=== PATIENT | male | born 1995 | race African-American/Black ===

== ENCOUNTER 2016-07-05 18:15 | Inpatient (IN) | payer OTHER ==
[~2016-07-05] VITALS: Ht 177.8 cm; Wt 75.8 kg
[~2016-07-05 18:15] MED LIST: DEPA500T3 PO; FLUP1INJ IM; FLUP5TAB PO
[2016-07-05 18:16] VITALS: BP 124/79; PULSE 100; RESP 10; RESP 20; TEMP 97.3; O2SAT 98
--- NOTE | 2016-07-05 20:08 | PD ---
Physical Exam Date Seen by Provider: Jul 05, 2016 Time Seen by Provider: 20:07 Narrative 21 YOBM C/O STIFFNESS IN HIS BACK. ALSO WANTS PSYCH EVAL. POS VOICES. NO SI OR HI VSS. AWAITING BED PLACEMENT Data Data Last Documented VS Vital Signs Date Time Temp Pulse Resp B/P Pulse Ox O2 Delivery O2 Flow Rate FiO2 07/05/16 18:16 97.3 100 20 124/79 98 Room Air [facility] Medical Record Reviewed: Yes Supervised Visit with ANNIE: Yes Paul De Jul 05, 2016 20:08
--- NOTE | 2016-07-05 23:38 | PD ---
HPI Chief Complaint: Psychiatric Symptoms Time Seen by Provider: 23:30 Travel History International Travel<30 days: No Contact w/Intl Traveler<30days: No Traveled to known affect area: No History of Present Illness HPI 21-year-old male with history of schizoaffective disorder, bipolar disorder, recent admission to psychiatry with discharge 4 days ago, here for evaluation of lower back stiffness and hearing voices. Patient reports feeling stiff for the last 4 days. He denies pain. No trauma. He tells me he is hearing voices. He denies suicidal or homicidal ideation. He reports compliance with his fluphenazine and Depakote. He denies alcohol or illicit drug use. PFSH Past Medical History Anxiety: No Depression: No Cancer: No Cardiovascular Problems: No Endocrine: No Genitourinary: No Immune Disorder: No Musculoskeletal: No Neurologic: No Psychiatric: Yes (Schizophrenia) Respiratory: No Past Surgical History AICD: No Arteriovenous Shunt: No Insulin Pump: No Joint Replacement: No Pacemaker: No Social History Alcohol Use: No Tobacco Use: No Substance Use: No (DENIES) Allergies-Medications (Allergen,Severity, Reaction): Coded Allergies: Cogentin (Verified Allergy, Severe, 07/05/16) Haldol (Verified Allergy, Severe, 07/05/16) Reported Meds & Prescriptions Reported Meds & Active Scripts Active Fluphenazine Decanoate Inj (Fluphenazine Decanoate) 125 Mg/5 Ml Inj 25 Mg IM Q21D This dose of fluphenazine decanoate is due on 07/22/2016. Depakote ER (Divalproex Sodium) 500 Mg Dexter 1,500 Mg PO HS 15 Days Fluphenazine (Fluphenazine HCl) 5 Mg Tab 5 Mg PO BID 15 Days Continue oral fluphenazine at least until your next fluphenazine decanoate injection or as directed by your outpatient provider. Review of Systems Except as stated in HPI: all other systems reviewed are Neg Physical Exam Narrative GENERAL: Well-developed, well-nourished, awake, alert, no acute distress. SKIN: Focused skin assessment warm/dry. No rash. HEAD: Atraumatic. Normocephalic. EYES: Pupils equal and round. No scleral icterus. No injection or drainage. ENT: Mucous membranes pink and moist. NECK: Trachea midline. No JVD. No nuchal rigidity. CARDIOVASCULAR: Regular rate and rhythm. RESPIRATORY: No accessory muscle use. Clear to auscultation. Breath sounds equal bilaterally. GASTROINTESTINAL: Abdomen soft, non-tender, nondistended. MUSCULOSKELETAL: No obvious deformities. No clubbing. No cyanosis. No edema. No midline vertebral step-off or tenderness. NEUROLOGICAL: Awake and alert. No obvious cranial nerve deficits. Motor grossly within normal limits. Normal speech. PSYCHIATRIC: Flat affect. Poor eye contact. Data Data Last Documented VS Vital Signs Date Time Temp Pulse Resp B/P Pulse Ox O2 Delivery O2 Flow Rate FiO2 07/05/16 18:16 97.3 100 20 124/79 98 Room Air Orders Complete Blood Count With Diff (07/05/16 23:34) Comprehensive Metabolic Panel (07/05/16 23:34) Valproic Acid (Depakene) (07/05/16 23:34) Psych Screen (07/05/16 23:34) Drug Screen, Random Urine (07/05/16 23:34) Diphenhydramine Inj (Benadryl Inj) (07/05/16 23:45) Labs Laboratory Tests Test 07/06/16 00:15 White Blood Count 9.7 TH/MM3 Red Blood Count 4.83 MIL/MM3 Hemoglobin 14.9 GM/DL Hematocrit 44.1 % Mean Corpuscular Volume 91.2 FL Mean Corpuscular Hemoglobin 30.9 PG Mean Corpuscular Hemoglobin 33.9 % Concent Red Cell Distribution Width 12.4 % Platelet Count 222 TH/MM3 Mean Platelet Volume 8.5 FL Neutrophils (%) (Auto) 52.2 % Lymphocytes (%) (Auto) 37.3 % Monocytes (%) (Auto) 6.4 % Eosinophils (%) (Auto) 3.5 % Basophils (%) (Auto) 0.6 % Neutrophils # (Auto) 5.1 TH/MM3 Lymphocytes # (Auto) 3.6 TH/MM3 Monocytes # (Auto) 0.6 TH/MM3 Eosinophils # (Auto) 0.3 TH/MM3 Basophils # (Auto) 0.1 TH/MM3 CBC Comment DIFF FINAL Differential Comment Sodium Level 139 MEQ/L Potassium Level 3.9 MEQ/L Chloride Level 103 MEQ/L Carbon Dioxide Level 28.7 MEQ/L Anion Gap 7 MEQ/L Blood Urea Nitrogen 12 MG/DL Creatinine 1.08 MG/DL Estimat Glomerular Filtration 105 ML/MIN Rate Random Glucose 117 MG/DL Calcium Level 8.6 MG/DL Total Bilirubin 0.5 MG/DL Aspartate Amino Transf 13 U/L (AST/SGOT) Alanine Aminotransferase 23 U/L (ALT/SGPT) Alkaline Phosphatase 70 U/L Total Protein 6.8 GM/DL Albumin 3.6 GM/DL Valproic Acid (Depakene) Level 67 MCG/ML [facility] Medical Decision Making Medical Screen Exam Complete: Yes Emergency Medical Condition: Yes Differential Diagnosis Dystonic reaction, acute psychosis, schizoaffective disorder Narrative Course Vital signs reviewed. CBC is unremarkable. CMP is unremarkable. Depakote level is 67. Patient was given a dose of Benadryl IV and is feeling improved. He is resting comfortably. There are no red flags for low back pain. He is medically cleared for psychiatric evaluation and disposition by them. Diagnosis Primary Impression: Schizoaffective disorder, bipolar type Kenny Almanza MD Jul 05, 2016 23:38 Kenny Almanza MD Jul 05, 2016 23:38
[2016-07-05] MEDS ORDERED: diphenhydrAMINE HCL 50 MG/ML VIAL IV PUSH ONE (23:45)
[2016-07-06 00:35] LABS: AUTOMATED NEUTROPHIL # 5.1 TH/MM3 (1.8-7.7); BASOPHIL # 0.1 TH/MM3 (0-0.2); BASOPHIL % 0.6 % (0.0-2.0); EOSINOPHIL # 0.3 TH/MM3 (0-0.4); EOSINOPHIL % 3.5 % (0.0-4.0); HEMATOCRIT 44.1 % (39.0-51.0); HEMO FLAGS DIFF FINAL; LYMPH % 37.3 % (9.0-44.0); LYMPHOCYTE # 3.6 TH/MM3 (1.0-4.8); MEAN CELL VOLUME 91.2 FL (80.0-100.0); MEAN CORPUSCULAR HEMOGLOBIN 30.9 PG (27.0-34.0); MEAN CORPUSCULAR HGB CONC 33.9 % (32.0-36.0); MONO % 6.4 % (0.0-8.0); NEUT % 52.2 % (16.0-70.0); PLATELET COUNT 222 TH/MM3 (150-450); RED BLOOD COUNT 4.83 MIL/MM3 (4.50-5.90); RED CELL DISTRIBUTION WIDTH 12.4 % (11.6-17.2); WHITE BLOOD COUNT 9.7 TH/MM3 (4.0-11.0)
[2016-07-06 00:53] LABS: ALT (GPT) 23 U/L (12-78); ANION GAP 7 MEQ/L (5-15); AST (GOT) 13 U/L (15-37); BICARBONATE 28.7 MEQ/L (21.0-32.0); BLOOD UREA NITROGEN 12 MG/DL (7-18); CHLORIDE 103 MEQ/L (98-107); GLOMERULAR FILTRATION RATE 105 ML/MIN (>89); POTASSIUM 3.9 MEQ/L (3.5-5.1); SODIUM (NA) 139 MEQ/L (136-145)
[2016-07-06 00:55] LABS: ALKALINE PHOSPHATASE 70 U/L (45-117); TOTAL BILIRUBIN ADULT 0.5 MG/DL (0.2-1.0)
[2016-07-06 04:00] VITALS: BP 124/72; PULSE 88; RESP 16; O2SAT 99
[2016-07-06 08:35] VITALS: BP 119/78; PULSE 71; RESP 18; O2SAT 97
--- NOTE | 2016-07-06 09:17 | HHI.HP ---
Provisional Diagnosis Admission Date 07/06/2016 Jesse I. 1. Schizoaffective disorder, bipolar type 2. Possible EPS Jesse II. Deferred Jesse V. GAF is 55 presently Certification of Person's Competence To Provide Express and Informed Consent I have personally examined Em Phillips , a person being served at [facility] on, Jul 06, 2016 09:17. Express and informed consent means consent voluntarily given in writing, by a competent person, after sufficient explanation and disclosure of the subject matter involved to enable the person to make a knowing and willful decision without any element of force, fraud, deceit, duress, or other form of constraint or coercion. This person is 18 years of age or older, is not now known to be incompetent to consent to treatment with a guardian advocate, and does not have a health care surrogate or proxy currently making medical treatment decisions. I have found this person to be one of the following: [x] Competent to provide express and informed consent, as defined above, for voluntary admission to this facility and is competent to provide express and informed consent for treatment. He/she has the consistent capacity to make well reasoned, willful, and knowing decisions concerning his or her medical or mental health treatment. The person fully and consistently understands the purpose of the admission for examination/placement and is fully capable of personally exercising all rights assured under [place] Incompetent to provide express and informed consent to voluntary admission, and this is incompetent to provide express and informed consent to treatment. The person must be transferred to involuntary status and a petition for a guardian advocate filed with the Circuit Court. [] Refusing to provide express and informed consent to voluntary admission but is competent to provide express and informed consent for treatment. The person must be discharged or transferred to involuntary status. Form shall be completed within 24 hours of a person's arrival at the receiving facility and filed in the clinical record of each person: 1. Admitted on a voluntary basis 2. Permitted to provide express and informed consent to his/her own treatment 3. Allowed to transfer from involuntary to voluntary status 4. Prior to permitting a person to consent to his or her own treatment after having been previously found incompetent to consent to treatment. History of Present Illness Capacity: Has Capacity HPI male with a history of schizoaffective disorder, recently discharged from the inpatient psychiatric unit on 07/01 on Prolixin Decanoate augmented with oral Prolixin as well as Depakote. The patient returned on a voluntary basis to the emergency department yesterday evening complaining of back stiffness and also possible hallucinations. The stiffness apparently responded nicely to IV Benadryl. Electronic medical record reviewed. Patient seen and examined. Chart reviewed. Case discussed with nursing staff. On my examination today, the patient presents as hypoverbal and flat. He says that he is experiencing auditory hallucinations "in my day-to-day." He says that these hallucinations are commenting on his activities. He denies any command auditory hallucinations. Mood is described as fine, and the patient does not describe any depressive or hypomanic/manic symptoms. He denies any suicidal or homicidal thoughts. He reports that he is sleeping and eating okay. No jailene delusional material. The remainder of the psychiatric ROS is negative. The patient is requesting voluntary psychiatric hospitalization "to give me some time to get my head right." Interval psychiatric history: Patient reports that he was supposed to follow-up at [facility] today. He maintains he has been adherent with his psychotropic medications. He denies any interval psychiatric admissions or suicide attempts. There has been no change in patient's family history, chemical dependency history or social history from my previous assessment. Review of Systems Except as stated in HPI: all other systems reviewed are Neg (except as above and below) Other Patient complains of lower back stiffness that began shortly after discharge from the inpatient unit. He does not describe any jaw tightening, breathing difficulties, oculogyric symptoms, tremor or other motoric abnormalities. He has no other physical complaints. Past Psych History Psychological trauma history No trauma history Violence risk - others (6 mos) Lower imminent risk. Denies homicidal ideation. No command auditory hallucinations. Violence risk - self (6 mos) Lower imminent risk. Denies suicidal ideation. No command auditory hallucinations. No depressive or other affective symptoms. Substance Abuse History Drugs/Alcohol past 12 months Denies any substance use Past Family Social History Coded Allergies: Cogentin (Verified Allergy, Severe, 07/05/16) Haldol (Verified Allergy, Severe, 07/05/16) Past Medical History See electronic medical record Active Scripts Fluphenazine Decanoate Inj 125 Mg/5 Ml Inj25 Mg IM Q21D #1 VIAL Ref 0 This dose of fluphenazine decanoate is due on 07/22/2016. Prov:Win Alvares MD 07/01/16 Divalproex ER (Depakote ER)500 Mg Taber1,500 Mg PO HS 15 Days Ref 1 Prov:Win Alvares MD 07/01/16 Fluphenazine 5 Mg Tab5 Mg PO BID 15 Days Ref 1 Continue oral fluphenazine at least until your next fluphenazine decanoate injection or as directed by your outpatient provider. Prov:Win Alvares MD 07/01/16 Family History See above Social History See above Patient's Strengths (min. 2) Adherent with medications. Verbally fluent. Physical Exam Physical exam completed by ED provider. On my examination today, patient appears to be well-nourished and well-developed. He is in no acute physical distress. He has no cogwheeling, no hypomimia, no dystonia or dyskinesia on my exam. He perhaps has some subtle increased tone in the UE, but this is mild and not "lead pipe." There is no meningismus. No other motoric abnormalities noted. Labs and vital signs reviewed: Vital Signs Vital Signs Date Time Temp Pulse Resp B/P Pulse Ox O2 Delivery O2 Flow Rate FiO2 07/06/16 08:35 71 18 119/78 97 Room Air 07/05/16 18:16 97.3 Lab Results Item Value Date Time White Blood Count 9.7 TH/MM3 07/06/16 0015 Hemoglobin 14.9 GM/DL 07/06/16 0015 Platelet Count 222 TH/MM3 07/06/16 0015 Sodium Level 139 MEQ/L 07/06/16 0015 Potassium Level 3.9 MEQ/L 07/06/16 0015 Chloride Level 103 MEQ/L 07/06/16 0015 Carbon Dioxide Level 28.7 MEQ/L 07/06/16 0015 Blood Urea Nitrogen 12 MG/DL 07/06/16 0015 Creatinine 1.08 MG/DL 07/06/16 0015 Estimat Glomerular Filtration Rate 105 ML/MIN 07/06/16 0015 Random Glucose 117 MG/DL H 07/06/16 0015 Aspartate Amino Transf (AST/SGOT) 13 U/L L 07/06/16 0015 Alanine Aminotransferase (ALT/SGPT) 23 U/L 07/06/1614 Alkaline Phosphatase 70 U/L 07/06/1614 Valproic Acid (Depakene) Level 67 MCG/ML 07/06/1614 Mental Status Examination Patient is in hospital gown. He is well groomed. He is awake and alert and oriented to person hospital at least. No motor abnormalities noted. Speech is within normal limits for rate, tone and volume. Language and fund of knowledge seem average. Mood is fair and affect is flat. Thought process linear. No loosening of associations. No evident delusions. Denies audiovisual hallucinations. Denies suicidal or homicidal ideation. Insight and judgment are fair. Assessment & Plan Problem List: (1) Schizoaffective disorder, bipolar type ICD Code: F25.0 (2) Extrapyramidal symptom Assessment & Plan: Possible. ICD Code: R29.818 Assessment & Plan This is a 21-year-old male with psychiatric history as detailed above who presents on a voluntary basis with complaints of stiffness and possible hallucinations. On my examination today, the patient describes noncommand auditory hallucinations describing his activities. His schizoaffective disorder otherwise appears fairly stable. He describes chiefly subjective back stiffness and on physical exam has perhaps some mild upper extremity increased tone without cogwheeling. No exam findings, no leukocytosis , no autonomic instability to suggest NMS. He apparently responded well to Benadryl last night. Given that his psychiatric symptomatology appears to be fairly well controlled with his current regimen, I will plan to admit the patient to the inpatient psychiatric unit briefly for the purpose of managing possible side effects. Admitted inpatient. Voluntary basis. Check CK, iron, trend vitals. Consult to the hospitalist to evaluate patient's complaints of back pain. I will temporarily hold patient's oral Prolixin. Prolixin Decanoate was administered on 07/01. Given that the patient has a Cogentin allergy, I will start Artane 2 mg twice daily. Will reintroduce oral Prolixin tomorrow so long as back stiffness is improved. Continue Depakote as ordered. Ativan as needed for anxiety, Benadryl as needed for EPS/sleep. Vitals every shift. Counselor see. Disposition planning. Estimated length of stay: 2-3 days. Discharge Planning Pending resolution of possible medication side effect. Request HC Surrog/Guard Advoc?: No Win Alvares MD Jul 06, 2016 09:17
[2016-07-06] MEDS ORDERED: LORazepam 2 MG/ML VIAL IM PRN (09:30)
[2016-07-06] MEDS ORDERED: ALUMINUM/MAGNESIUM/SIMETH 30 ML CUP PO PRN (09:30)
[2016-07-06] MEDS ORDERED: ACETAMINOPHEN 325 MG TAB PO PRN (09:30)
[2016-07-06] MEDS ORDERED: MAGNESIUM HYDROXIDE SUSP 30 ML CUP PO PRN (09:30)
[2016-07-06] MEDS ORDERED: diphenhydrAMINE HCL 50 MG/ML VIAL IM ONE (09:45)
[2016-07-06 11:54] VITALS: BP 114/77; PULSE 68; RESP 18; TEMP 97.8
[2016-07-06 15:04] LABS: TRANSFERRIN IRON PROFILE 264 MG/DL (200-360)
[2016-07-06 15:06] LABS: CREATINE KINASE 425 U/L (39-308)
[2016-07-06 15:33] LABS: CKMB 1.2 NG/ML (0.5-3.6)
[2016-07-06] MEDS: diphenhydrAMINE HCL 50 MG CAP PO PRN ×2 (16:30→20:23)
--- NOTE | 2016-07-06 16:51 | PD.CONS ---
HPI Service [facility] Consult Requested By Dr Alvares Reason for Consult To evaluate Back stiffness Primary Care Physician No Primary Care Physician Diagnoses: History of Present Illness This is a 21-year-old male with history of schizoaffective disorder and bipolar disorder, recent admission to psychiatry with discharge 4 days ago, here for evaluation of lower back stiffness and hearing voices. Patient reports feeling stiff for the last 4 days. He denies pain, numbness and focal weakness. No trauma, UTI symptoms, fever and chills. He tells me he is hearing voices. He denies suicidal or homicidal ideation. He reports compliance with his fluphenazine and Depakote. He denies alcohol or illicit drug use. Patient received Benadryl with improvement of stiffness. Consultation has been requested by his attending to evaluate other possible causes for back stiffness Review of Systems Constitutional: DENIES: Diaphoretic episodes, Fatigue, Fever, Weight gain, Weight loss, Chills, Dizziness, Change in appetite, Night Sweats Endocrine: DENIES: Heat/cold intolerance, Polydipsia, Polyuria, Polyphagia Eyes: DENIES: Blurred vision, Diplopia, Vision loss, Photosensitivity Ears, nose, mouth, throat: DENIES: Tinnitus, Vertigo, Throat pain, Hoarseness, Epistaxis, Odynophagia Respiratory: DENIES: Cough, Wheezing, Hemoptysis, Sputum production, Shortness of breath Cardiovascular: DENIES: Chest pain, Palpitations, Syncope, Dyspnea on Exertion , PND, Lower Extremity Edema, Orthopnea, Claudication Gastrointestinal: DENIES: Abdominal pain, Black stools, Bloody stools, Constipation, Diarrhea, Nausea, Vomiting, Difficulty Swallowing, Anorexia Genitourinary: DENIES: Urinary frequency, Urinary incontinence, Urgency, Hematuria, Dysuria, Nocturia, Penile Discharge Musculoskeletal: COMPLAINS OF: Stiffness Integumentary: DENIES: Rash Neurologic: DENIES: Headache, Localized weakness, Seizures, Tremor, Poor Balance Psychiatric: COMPLAINS OF: Hallucinations, DENIES: Anxiety, Confusion, Depression, Agitation, Suicidal Ideation, Homicidal Ideation, Delusions Past Family Social History Allergies: Coded Allergies: Cogentin (Verified Allergy, Severe, 07/05/16) Haldol (Verified Allergy, Severe, 07/05/16) Past Medical History As previously mentioned Past Surgical History Denies Reported Medications Depakote and Prolixin Family History Denies diabetes Social History Smokes 5 cigarettes a day. Does not drink Physical Exam Vital Signs Vital Signs Date Time Temp Pulse Resp B/P Pulse Ox O2 Delivery O2 Flow Rate FiO2 07/06/16 11:54 97.8 68 18 114/77 07/06/16 08:35 71 18 119/78 97 Room Air 07/06/16 04:00 88 16 124/72 99 Room Air 07/05/16 18:16 97.3 100 20 124/79 98 Room Air Physical Exam GENERAL: This is a well-nourished, well-developed patient, in no apparent distress. SKIN: No rashes, ecchymoses or lesions. Cool and dry. HEAD: Atraumatic. Normocephalic. No temporal or scalp tenderness. EYES: Pupils equal round and reactive. Extraocular motions intact. No scleral icterus. No injection or drainage. ENT: Nose without bleeding, purulent drainage or septal hematoma. Throat without erythema, tonsillar hypertrophy or exudate. Uvula midline. Airway patent. NECK: Trachea midline. No JVD or lymphadenopathy. Supple, nontender, no meningeal signs. CARDIOVASCULAR: Regular rate and rhythm without murmurs, gallops, or rubs. RESPIRATORY: Clear to auscultation. Breath sounds equal bilaterally. No wheezes , rales, or rhonchi. GASTROINTESTINAL: Abdomen soft, non-tender, nondistended. No guarding. MUSCULOSKELETAL: Extremities without clubbing, cyanosis, or edema. No joint tenderness, effusion, or edema noted. No calf tenderness. Negative Homans sign bilaterally. Left lower paraspinal muscle with slight tension NEUROLOGICAL: Awake and alert. Cranial nerves II through XII intact. Motor and sensory grossly within normal limits. Five out of 5 muscle strength in all muscle groups. Normal speech. Laboratory Laboratory Tests Test 07/06/16 07/06/16 00:15 14:27 White Blood Count 9.7 Red Blood Count 4.83 Hemoglobin 14.9 Hematocrit 44.1 Mean Corpuscular Volume 91.2 Mean Corpuscular Hemoglobin 30.9 Mean Corpuscular Hemoglobin 33.9 Concent Red Cell Distribution Width 12.4 Platelet Count 222 Mean Platelet Volume 8.5 Neutrophils (%) (Auto) 52.2 Lymphocytes (%) (Auto) 37.3 Monocytes (%) (Auto) 6.4 Eosinophils (%) (Auto) 3.5 Basophils (%) (Auto) 0.6 Neutrophils # (Auto) 5.1 Lymphocytes # (Auto) 3.6 Monocytes # (Auto) 0.6 Eosinophils # (Auto) 0.3 Basophils # (Auto) 0.1 CBC Comment DIFF FINAL Differential Comment Sodium Level 139 Potassium Level 3.9 Chloride Level 103 Carbon Dioxide Level 28.7 Anion Gap 7 Blood Urea Nitrogen 12 Creatinine 1.08 Estimat Glomerular Filtration 105 Rate Random Glucose 117 Calcium Level 8.6 Total Bilirubin 0.5 Aspartate Amino Transf 13 (AST/SGOT) Alanine Aminotransferase 23 (ALT/SGPT) Alkaline Phosphatase 70 Total Protein 6.8 Albumin 3.6 Valproic Acid (Depakene) Level 67 Iron Level 114 Total Iron Binding Capacity 370 Percent Iron Saturation 30.8 Total Creatine Kinase 425 Creatine Kinase MB 1.2 Creatine Kinase MB % 0.3 Result Diagram: 07/06/16 0015 07/06/16 0015 Assessment and Plan Assessment and Plan This is a 21-year-old male with history of schizoaffective disorder and bipolar disorder, recent admission to psychiatry with discharge 4 days ago, here for evaluation of lower back stiffness and hearing voices. Patient reports feeling stiff for the last 4 days. He denies pain, numbness and focal weakness. No trauma, UTI symptoms, fever and chills. Patient received Benadryl with improvement of stiffness. Consultation has been requested by his attending to evaluate other possible causes for back stiffness Back stiffness possible EPS vs musculoskeletal DO. Doubt NMS. Agree with benadryl. Heating pads Low risk for DVT Titus Ro MD Jul 06, 2016 16:51
[2016-07-06 17:43] LABS: BLOOD, URINE NEG (NEG); COMMENT (UR) CULT NOT INDICATED; CULTURE IF INDICATED CULT NOT INDICATED; GLUCOSE,URINE NEG (NEG); KETONE, URINE NEG (NEG); NITRITE,URINE NEG (NEG); PH, URINE 6.5 (5.0-8.5); URINE COLOR LIGHT-YELLOW (YELLW/STRAW)
[2016-07-06 17:50] VITALS: BP 121/68; PULSE 61; RESP 18; TEMP 98.5; O2SAT 98
[2016-07-06] MEDS: TRIHEXYPHENIDYL HCL 2 MG TAB PO SCH (20:23)
[2016-07-06] MEDS: LORazepam 1 MG TAB PO PRN (20:23)
[2016-07-06] MEDS: DIVALPROEX SODIUM E.R. 500 MG TAB PO SCH (20:24)
[2016-07-07] MEDS: diphenhydrAMINE HCL 50 MG CAP PO PRN ×2 (01:53→20:58)
[2016-07-07] MEDS: LORazepam 1 MG TAB PO PRN ×3 (01:53→19:58)
[2016-07-07 02:38] LABS: AMPHETAMINE, URINE NEG (NEG); BARBITURATES, URINE NEG (NEG); COCAINE, URINE NEG (NEG)
[2016-07-07] MEDS: diphenhydrAMINE HCL 50 MG/ML VIAL IM PRN ×2 (05:45→10:58)
[2016-07-07 06:18] VITALS: BP 116/56; PULSE 65; RESP 18; TEMP 97.3; O2SAT 98
[2016-07-07] MEDS: TRIHEXYPHENIDYL HCL 2 MG TAB PO SCH (08:32)
[2016-07-07] MEDS: REMOVE OLD PATCH T-DERMAL SCH (08:32)
[2016-07-07] MEDS: NICOTINE 21 MG/24 HR PATCH T-DERMAL SCH (08:33)
--- NOTE | 2016-07-07 11:34 | HHI.PYPN ---
Subjective Remarks Patient seen and examined. Chart reviewed. Case discussed with nursing staff. Patient reportedly asking for Benadryl. No behavioral problem noted. On my examination today, patient is calm and pleasant. He denies any suicidal or homicidal ideation. He denies any auditory hallucinations but reports visual hallucinations of "clear stuff." Denies any ongoing EPS or other side effects from medications. He would like to switch the Artane to Benadryl because he likes the effect of this medication better. Initially requesting discharge but after I share with him collateral nurse has obtain from his mother, he agrees to stay for a few additional days of observation. Nurse did share with me that she has spoken with patient's mother who is concerned about the patient being discharged. Says he is hearing voices and behaving in a somewhat odd fashion. I did try to call mother back and left a voicemail requesting a call back. Review of Systems Except as stated in HPI: all other systems reviewed are Neg Objective Alert: Yes Cornucopia: Person, Place, Situation Mood: Calm Affect: Flat Memory Intact: Comment (seems fair on clinical exam) Hallucinations: Visual Delusions: No Delusion Type: Other (no delusions) Suicidal: Ideation (no SI) Homicidal: Ideation (no HI) Insight/Judgement Fair Remarks No abnormal motor movements noted. No hand tremor, no cogwheeling, no dystonia , no dyskinesia. Thought processes fairly linear. Labs Test 07/06/16 07/06/16 14:27 17:04 Iron Level 114 MCG/DL Total Iron Binding Capacity 370 MCG/DL Percent Iron Saturation 30.8 % Total Creatine Kinase 425 U/L Creatine Kinase MB 1.2 NG/ML Creatine Kinase MB % 0.3 % Urine Opiates Screen NEG Urine Barbiturates Screen NEG Urine Amphetamines Screen NEG Urine Benzodiazepines Screen NEG Urine Cocaine Screen NEG Urine Cannabinoids Screen NEG Labs reviewed. Above CK is from yesterday. Awaiting CK from today. Vitals/IOs Vital Signs Date Time Temp Pulse Resp B/P Pulse Ox O2 Delivery O2 Flow Rate FiO2 07/07/16 06:18 97.3 65 18 116/56 98 07/06/16 08:35 Room Air Assessment & Plan Problem List: (1) Schizoaffective disorder, bipolar type ICD Code: F25.0 (2) Extrapyramidal symptom Assessment & Plan: Resolved ICD Code: R29.818 Assessment & Plan I will replace Artane with Benadryl 25 mg 3 times a day. Patient received Prolixin Decanoate on discharge last week and so requires ongoing oral supplementation. I will start Prolixin 5 mg twice a day. Transfer to the 2600 unit. Patient has agreed to remain for additional observation in light of mother's concerns. Continue other medications and care as ordered. Justification for Cont. Inpt. Concern for impairment in reality construction. Medication changes. Discharge Planning I would anticipate discharge within the next 1-2 days barring some clinical deterioration. Request HC Surrog/Guard Advoc?: No Win Alvares MD Jul 07, 2016 11:34
[2016-07-07] MEDS: diphenhydrAMINE HCL 25 MG CAP PO SCH ×2 (12:39→17:04)
[2016-07-07 18:14] VITALS: BP 120/69; PULSE 87; RESP 18; TEMP 98.1; O2SAT 97
[2016-07-07] MEDS: DIVALPROEX SODIUM E.R. 500 MG TAB PO SCH (20:58)
[2016-07-08 06:24] VITALS: BP 106/76; PULSE 66; RESP 16; TEMP 96.6; O2SAT 99
[2016-07-08] MEDS: NICOTINE 21 MG/24 HR PATCH T-DERMAL SCH (08:54)
[2016-07-08] MEDS: diphenhydrAMINE HCL 25 MG CAP PO SCH ×3 (08:54→18:00)
[2016-07-08] MEDS: REMOVE OLD PATCH T-DERMAL SCH (08:54)
--- NOTE | 2016-07-08 14:07 | HHI.PYPN ---
Subjective Remarks Patient seen in [facility] with nurse Terrence, chart review, patient calm cooperative with me denies suicidality homicidality voices or visions. Is compliant with his medications. States she is talk to his mother and she feels safe with him coming home tomorrow. For now will continue treatment no change patient continues to do good over next 24 hours will consider discharge tomorrow Review of Systems Except as stated in HPI: all other systems reviewed are Neg Objective Alert: Yes [place]: Person, Place, Situation Mood: Calm Affect: Flat Memory Intact: Comment (seems fair on clinical exam) Hallucinations: Visual (now denies) Delusions: No Delusion Type: Other (no delusions) Suicidal: Ideation (no SI) Homicidal: Ideation (no HI) Insight/Judgement Poor Vitals/IOs Vital Signs Date Time Temp Pulse Resp B/P Pulse Ox O2 Delivery O2 Flow Rate FiO2 07/08/16 06:24 96.6 66 16 106/76 99 07/06/16 08:35 Room Air Intake and Output 07/07/16 07/07/16 07/08/16 08:00 16:00 00:00 Intake Total 360 ml Balance 360 ml Assessment & Plan Problem List: (1) Schizoaffective disorder, bipolar type ICD Code: F25.0 (2) Extrapyramidal symptom ICD Code: R29.818 Assessment & Plan Estimated LOS: days patient compliant medications, now denies voices or visions of suicidality homicidality. For now continue treatment consider discharge next 24 hours Justification for Cont. Inpt. At this time patient will decompensate if placed in the lower level of care Discharge Planning To be determined Request HC Surrog/Guard Advoc?: No Alfredo Uribe MD Jul 08, 2016 14:07
[2016-07-08] MEDS ORDERED: MENTHOL LOZENGE BUCCAL PRN (14:15)
[2016-07-08 19:21] VITALS: BP 114/69; PULSE 76; RESP 18; TEMP 97.6; O2SAT 100
[2016-07-08] MEDS: DIVALPROEX SODIUM E.R. 500 MG TAB PO SCH (20:18)
[2016-07-09] MEDS: diphenhydrAMINE HCL 50 MG CAP PO PRN ×2 (02:07→21:07)
[2016-07-09 05:27] VITALS: BP 100/61; PULSE 64; RESP 16; TEMP 97.9; O2SAT 100
[2016-07-09] MEDS: REMOVE OLD PATCH T-DERMAL SCH (09:00)
[2016-07-09] MEDS: NICOTINE 21 MG/24 HR PATCH T-DERMAL SCH (09:00)
[2016-07-09] MEDS: diphenhydrAMINE HCL 25 MG CAP PO SCH ×3 (09:32→18:00)
[2016-07-09 09:33] LABS: CKMB 0.9 NG/ML (0.5-3.6)
--- NOTE | 2016-07-09 13:38 | HHI.PYPN ---
Subjective Remarks Patient seen on unit with nurse Deirdre, chart review, patient continues pacing the halls, somewhat vigilant and perhaps suspicious. He is compliant with his medications. He states his mother wants him to come home today. I did call patient's mother Mary Grace Phillips at [phone]. I spoke with a lady named Myrna claim she was patient's mother's "". She stated patient was hospitalized in [place] until a week ago and then discharged. It appears there is some confusion patient was hospitalized here June 12 her July 01 of this year. Considering these confusing statements I feel is best for us to continue observing and monitoring this young man with some adjustment of the medication I did invite patient's mother and "" to meet with me 8:30 07/12. Review of Systems Except as stated in HPI: all other systems reviewed are Neg Objective Alert: Yes [place]: Person, Place, Situation Mood: Calm Affect: Flat Memory Intact: Comment (seems fair on clinical exam) Hallucinations: Visual (now denies) Delusions: No Delusion Type: Other (no delusions) Suicidal: Ideation (no SI) Homicidal: Ideation (no HI) Insight/Judgment Very poor Labs Test 07/09/16 07:55 Total Creatine Kinase 742 U/L Creatine Kinase MB 0.9 NG/ML Creatine Kinase MB % 0.1 % Vitals/IOs Vital Signs Date Time Temp Pulse Resp B/P Pulse Ox O2 Delivery O2 Flow Rate FiO2 07/09/16 05:27 97.9 64 16 100/61 100 07/06/16 08:35 Room Air Assessment & Plan Problem List: (1) Schizoaffective disorder, bipolar type ICD Code: F25.0 (2) Extrapyramidal symptom ICD Code: R29.818 Assessment & Plan Estimated LOS: days patient remains vigilant somewhat paranoid, though compliant medications. There is some confusing history given by patient's mother's "" "he needs to be further explored. For now we'll continue treatment team meeting with the family and patient on Wednesday 07/12 Justification for Cont. Inpt. At this time patient will decompensate and placed on the lower level of care Discharge Planning To be determined Request HC Surrog/Guard Advoc?: No Alfredo Uribe MD Jul 09, 2016 13:38
[2016-07-09 19:00] VITALS: BP 130/71; PULSE 95; RESP 18; TEMP 98.2; O2SAT 99
[2016-07-09] MEDS: DIVALPROEX SODIUM E.R. 500 MG TAB PO SCH (21:06)
[2016-07-10 05:45] VITALS: BP 99/58; PULSE 67; RESP 18; TEMP 98; O2SAT 98
[2016-07-10] MEDS: NICOTINE 21 MG/24 HR PATCH T-DERMAL SCH (09:00)
[2016-07-10] MEDS: REMOVE OLD PATCH T-DERMAL SCH (09:00)
[2016-07-10] MEDS: diphenhydrAMINE HCL 25 MG CAP PO SCH ×3 (09:01→17:21)
--- NOTE | 2016-07-10 14:43 | HHI.PYPN ---
Subjective Remarks Patient was seen and case discussed with nursing. Patient interviewed in bed. He is blunted and apathetic. Describes his mood is "fine." Poor insight into admission. Poor hygiene, follow older. Says that "my family said I had an episode." Compliant with medications Objective Alert: Yes [place]: Person, Place, Situation Mood: Calm Affect: Flat Memory Intact: Comment (seems fair on clinical exam) Hallucinations: Visual (now denies) Delusions: No Delusion Type: Other (no delusions) Suicidal: Ideation (no SI) Homicidal: Ideation (no HI) Insight/Judgment Poor Vitals/IOs Vital Signs Date Time Temp Pulse Resp B/P Pulse Ox O2 Delivery O2 Flow Rate FiO2 07/10/16 05:45 98.0 67 18 99/58 98 07/06/16 08:35 Room Air Intake and Output 07/09/16 07/09/16 07/10/16 08:00 16:00 00:00 Intake Total 360 ml 360 ml Balance 360 ml 360 ml Assessment & Plan Problem List: (1) Schizoaffective disorder, bipolar type ICD Code: F25.0 (2) Extrapyramidal symptom ICD Code: R29.818 Assessment & Plan Continue current treatment plan Justification for Cont. Inpt. Patient will decompensate in a less restrictive setting Request HC Surrog/Guard Advoc?: No Dong Henning DO Jul 10, 2016 14:43
[2016-07-10 19:28] VITALS: BP 106/66; PULSE 93; RESP 20; TEMP 98.1; O2SAT 96
[2016-07-10] MEDS: DIVALPROEX SODIUM E.R. 500 MG TAB PO SCH (21:19)
[2016-07-10] MEDS: diphenhydrAMINE HCL 50 MG CAP PO PRN (21:20)
[2016-07-11 06:12] VITALS: BP 137/62; PULSE 69; RESP 16; TEMP 97.5; O2SAT 99
[2016-07-11] MEDS: REMOVE OLD PATCH T-DERMAL SCH (09:00)
[2016-07-11] MEDS: diphenhydrAMINE HCL 25 MG CAP PO SCH ×3 (09:29→17:37)
[2016-07-11] MEDS: NICOTINE 21 MG/24 HR PATCH T-DERMAL SCH (09:30)
--- NOTE | 2016-07-11 16:24 | HHI.PYPN ---
Subjective Remarks Patient was seen and case discussed with nursing. Patient remains blunted with poor insight into admission. As noted by nursing to be paranoid and watchful. Denies auditory or visual hallucinations. Looking forward to meeting with his family tomorrow. Compliant with medications Objective Alert: Yes [place]: Person, Place, Date, Situation Mood: Other ("okay") Affect: Blunted Memory Intact: Comment (seems fair on clinical exam) Hallucinations: Other (denies) Delusions: No Delusion Type: Other (no delusions) Suicidal: Ideation (no SI) Homicidal: Ideation (no HI) Insight/Judgment Poor Vitals/IOs Vital Signs Date Time Temp Pulse Resp B/P Pulse Ox O2 Delivery O2 Flow Rate FiO2 07/11/16 06:12 97.5 69 16 137/62 99 Assessment & Plan Problem List: (1) Schizoaffective disorder, bipolar type ICD Code: F25.0 (2) Extrapyramidal symptom ICD Code: R29.818 Assessment & Plan Continue current treatment plan Justification for Cont. Inpt. Patient will decompensate in a less restrictive setting Request HC Surrog/Guard Advoc?: No Dong Henning DO Jul 11, 2016 16:24
[2016-07-11 19:49] VITALS: BP 99/57; PULSE 91; RESP 16; O2SAT 99
[2016-07-11] MEDS: DIVALPROEX SODIUM E.R. 500 MG TAB PO SCH (20:59)
[2016-07-12 06:17] VITALS: BP 108/66; PULSE 71; RESP 18; TEMP 98.2; O2SAT 99
[2016-07-12] MEDS: REMOVE OLD PATCH T-DERMAL SCH (09:00)
[2016-07-12] MEDS: diphenhydrAMINE HCL 25 MG CAP PO SCH ×3 (09:15→17:53)
[2016-07-12] MEDS: NICOTINE 21 MG/24 HR PATCH T-DERMAL SCH (09:15)
--- NOTE | 2016-07-12 16:04 | HHI.PYPN ---
Subjective Remarks Patient discussed with treatment team, chart review, prior to treatment team met with patient's mother, mother's female "", patient's "aunt" (third cousin), patient sister, and appears to be to 6 or 7-year-old niece and nephew. All family members are concerned about patient though there is some contentiousness related to placement further showing man. Mother wants patient , and wants patient, and sister wants patient. They all agreed that he has had mental illness but how to proceed from there is showing some disagreement. However patient has no guardianship or surrogacy. We finally decided to allow the patient to make a decision about where he goes up on discharge. I also decided that patient would benefit from a booster Prolixin decanoate injection of 25 mg today. After treatment team counselor and I did discuss all of the above with the patient initially states he wants to go with this and other may be some issues related to the and sleeping and [place] in finding appropriate referrals for mental health care and injections services. Consul will be investigating this. Patient overall is calm cooperative now denying any voices denying suicidality he also process 12 the dynamics that appear to be going on and his family there will be consideration of discharge tomorrow to placement that the patient requests Review of Systems Except as stated in HPI: all other systems reviewed are Neg Objective Alert: Yes [place]: Person, Place, Date, Situation Mood: Other ("okay") Affect: Blunted Memory Intact: Comment (seems fair on clinical exam) Hallucinations: Other (denies) Delusions: No Delusion Type: Other (no delusions) Suicidal: Ideation (no SI) Homicidal: Ideation (no HI) Insight/Judgment Poor Vitals/IOs Vital Signs Date Time Temp Pulse Resp B/P Pulse Ox O2 Delivery O2 Flow Rate FiO2 07/12/16 06:17 98.2 71 18 108/66 99 Assessment & Plan Problem List: (1) Schizoaffective disorder, bipolar type ICD Code: F25.0 (2) Extrapyramidal symptom ICD Code: R29.818 Assessment & Plan Estimated LOS: days patient psychosis is resolving, compliant medications, he also appears to be coping with the dynamics related to his extended family situation. She medication adjustments above Justification for Cont. Inpt. At this time patient will decompensate if placed in a lower level of care Discharge Planning To be determined Request HC Surrog/Guard Advoc?: No Alfredo Uribe MD Jul 12, 2016 16:04
[2016-07-12 18:19] VITALS: BP 93/55; PULSE 68; RESP 20; TEMP 98.2; O2SAT 100
[2016-07-12 18:41] VITALS: BP 117/61; PULSE 70
[2016-07-12] MEDS: DIVALPROEX SODIUM E.R. 500 MG TAB PO SCH (20:35)
[2016-07-12] MEDS: LORazepam 1 MG TAB PO PRN (21:29)
[2016-07-13 05:20] VITALS: BP 107/53; PULSE 62; RESP 18; TEMP 98; O2SAT 99
[2016-07-13] MEDS: REMOVE OLD PATCH T-DERMAL SCH (09:00)
[2016-07-13] MEDS: NICOTINE 21 MG/24 HR PATCH T-DERMAL SCH (09:00)
[2016-07-13] MEDS: diphenhydrAMINE HCL 25 MG CAP PO SCH (09:14)
[2016-07-13] MEDS ORDERED: FLUP1INJ IM (10:35)
[2016-07-13] MEDS ORDERED: FLUP5TAB PO (10:35)
[2016-07-13] MEDS ORDERED: DEPA500T3 PO (10:35)
[2016-07-13] MEDS ORDERED: DIPH25CA PO (10:35)
--- NOTE | 2016-07-13 10:42 | HHI.DS ---
Psychiatry Discharge Summary Inpatient Psychiatric care?: Yes Advance Directive: No Reason Not Provided: Due to Patient Condition Mental Health AdvanceDirective: No Health Care Proxy: No Admission Admission Date Jul 06, 2016 at 09:15 Admission Diagnosis: (1) Schizoaffective disorder, bipolar type ICD Code: F25.0 Brief History male with a history of schizoaffective disorder, recently discharged from the inpatient psychiatric unit on 07/01 on Prolixin Decanoate augmented with oral Prolixin as well as Depakote. The patient returned on a voluntary basis to the emergency department yesterday evening complaining of back stiffness and also possible hallucinations. The stiffness apparently responded nicely to IV Benadryl. Electronic medical record reviewed. Patient seen and examined. Chart reviewed. Case discussed with nursing staff. On my examination today, the patient presents as hypoverbal and flat. He says that he is experiencing auditory hallucinations "in my day-to-day." He says that these hallucinations are commenting on his activities. He denies any command auditory hallucinations. Mood is described as fine, and the patient does not describe any depressive or hypomanic/manic symptoms. He denies any suicidal or homicidal thoughts. He reports that he is sleeping and eating okay. No jailene delusional material. The remainder of the psychiatric ROS is negative. The patient is requesting voluntary psychiatric hospitalization "to give me some time to get my head right." Interval psychiatric history: Patient reports that he was supposed to follow-up at [facility] today. He maintains he has been adherent with his psychotropic medications. He denies any interval psychiatric admissions or suicide attempts. There has been no change in patient's family history, chemical dependency history or social history from my previous assessment. Tobacco Use In Past 30 Days: 5 or More Cigarettes/Day Alcohol Use: Never Hospital Course Patient's initial psychosis paranoia, vigilance slowly resolved as he became compliant with his medications along with the adjustment of his Depakote and Prolixin. Also with the addition of a booster Prolixin decanoate. He now denies any suicidality homicidality voices or visions. He is also compliant with the booster injection of Prolixin decanoate. It appears patient's extended family have come to agreement. Patient was discharged today to his aunt with Rx 1 month including Rx for Prolixin decanoate Injection do on . With follow-up through [facility] Results Blood Pressure 107 / 53 Vital Signs Date Time Temp Pulse Resp B/P Pulse Ox O2 Delivery O2 Flow Rate FiO2 07/13/16 05:20 98.0 62 18 107/53 99 Urine toxicology negative Summary of Procedures None done Pending results at discharge: No Medications # of Antipsychotic meds at D/C: 1 Approp Antipsych med options 1 - Minimum of three failed multiple trials of monotherapy. 2 - Documented plan to taper to monotherapy due to previous use of multiple meds OR cross-taper in progress at D/C. 3 - Documentation of augmentation of Clozapine. 4 - Justification other than those listed in allowable values 1-3, document here : Discharge Discharge Date: Jul 13, 2016 Discharge Diagnosis: (1) Schizoaffective disorder, bipolar type Diagnosis: Principal ICD Code: F25.0 Mental Status Exam at Disch Alert oriented [place]ro[place] male calm cooperative with me, he has normal active , mood is euthymic to somewhat restricted, affect show some decreased range and intensity, speech rate and is somewhat slow, no formal thought disorders noted. Patient denies any auditory or visual hallucinations, no delusions noted. Though there is some mild vigilance. Insight and judgment is poor to fair, cognition grossly intact Pt Condition on Discharge: Stable Discharge Disposition: Discharge Home Discharge Instructions Diet Instructions: As Tolerated, No Restrictions Activities you can perform: Regular-No Restrictions Scheduled Appointment: [facility] Appointment Date: Jul 16, 2016 Appointment Time: 7:00am Discharge Time > 30 minutes Discharge/Advance Care Plan Health Problems: (1) Schizoaffective disorder, bipolar type (2) Extrapyramidal symptom Goals to promote your health * To prevent worsening of your condition and complications * To maintain your health at the optimal level Directions to meet your goals Take your medications as prescribed Follow your dietary instruction Follow activity as directed Keep your appointments as scheduled Take your immunizations and boosters as scheduled If your symptoms worsen call your PCP, if no PCP go to Urgent Care Center or Emergency Room For 25/10 questions related to your inpatient stay or results of tests pending at discharge, please contact Dr. Alfredo Uribe at Smoking is Dangerous to Your Health. Avoid second hand smoking Alfredo Uribe MD Jul 13, 2016 10:42
== END 2016-07-13 11:50 | disposition home or self-care (01) | DRG 885 ==
LOC: NEPA 18:15 → H270 07-06 09:15 → H260 07-07 12:19
PROVIDERS: ADMIT Psychiatry & Neurology Psychiatry; ATTEND Psychiatry & Neurology Psychiatry
DX: F25.0 Schizoaffective disorder, bipolar type (principal); F17.210 Nicotine dependence, cigarettes, uncomplicated
CPT/HCPCS: 80053; 80164; 80307; 81001; 82550; 82552; 83540; 83550; 85025; 96374; J1200; J2680; Q0163